=== PATIENT | female | born 2000 | race Caucasian/White ===

== ENCOUNTER 2022-12-14 21:46 | Observation (INO) | payer MEDICAID ==
[~2022-12-14] VITALS: Ht 165.1 cm; Wt 93.7 kg
[2022-12-14 21:47] VITALS: BP 166/94; PULSE 20; RESP 18
[2022-12-14 22:29] LABS: APPEARANCE,URINE CLEAR (CLEAR); BILIRUBIN,URINE NEGATIVE (NEGATIVE); COLOR,URINE LIGHT-YELLOW (YELLOW); GLUCOSE, URINE (UA) NEGATIVE (NEGATIVE); KETONES,URINE NEGATIVE (NEGATIVE); LEUKOCYTE ESTERASE ,URINE 250 Leu/uL (NEGATIVE); NITRATE,URINE NEGATIVE (NEGATIVE); OCCULT BLOOD,URINE NEGATIVE (NEGATIVE); PH,URINE 6.5 (5.0-8.0); PROTEIN,URINE 10 mg/dL (NEGATIVE); UROBILINOGEN,URINE 0.2 mg/dL (0.2-1.0)
[2022-12-14 22:32] LABS: ADD UA MICROSCOPIC YES
[2022-12-14 22:35] LABS: HCG,QUALITATIVE URINE POSITIVE (NEGATIVE)
[2022-12-14 22:36] LABS: BACTERIA,URINE RARE /HPF (None Seen); MUCUS,URINE RARE LPF (None Seen); SQUAMOUS EPITHELIAL CELL,UR FEW /HPF (0-2); WBC,URINE 26-50 /HPF (0-1)
[2022-12-14 22:42] LABS: AMPHET/METH SCREEN,URINE NEGATIVE (NEGATIVE); BARBITURATE SCREEN, URINE NEGATIVE (NEGATIVE); BENZODIAZEPINES SCREEN,URINE NEGATIVE (NEGATIVE); CANNABINOID SCREEN,URINE NEGATIVE (NEGATIVE); COCAINE SCREEN,URINE NEGATIVE (NEGATIVE); OPIATE SCREEN,URINE NEGATIVE (NEGATIVE); PHENCYCLIDINE SCREEN,URINE NEGATIVE (NEGATIVE)
[2022-12-14] MEDS ORDERED: TERBUTALINE SULFATE VIAL 1MG/ML SQ ONE ×2 (22:48→23:00)
[2022-12-14] MEDS ORDERED: TERBUTALINE SULFATE VIAL 1MG/ML SQ SCH (23:00)
[2022-12-14] MEDS ORDERED: LACTATED RINGERS 1000ML IV ONE (23:00)
== END 2022-12-15 01:25 | disposition home or self-care (01) ==
LOC: EDH 21:46 → LDH 22:08
PROVIDERS: ADMIT Obstetrics & Gynecology; ATTEND Obstetrics & Gynecology
DX: O62.9 Abnormality of forces of labor, unspecified (principal); Z3A.26 26 weeks gestation of pregnancy
CPT/HCPCS: 96372; 96360; 80305; 87088; 81001; 81025; 96361; G0378 ×3; G0379; J3105